=== PATIENT | female | born 1945 | race Caucasian/White ===

== ENCOUNTER → 2016-09-07 | Outpatient (CLI) | payer OTHER ==
[~2016-09-07] VITALS: Ht 157.5 cm; Wt 80.7 kg
[~2016-09-07] MED LIST: ALIGN4 MG PO; BUSPIRONE HCL15 MG PO; CARVEDILOL6.25 MG PO; HAIR, SKIN & N1 EAC2 PO; HYDROCHLOROTHIA25 M2 PO; IRON325 PO; KRILL OIL500 MG PO; SINGULAIR 10 MG10 M1 PO; VENTOLIN HFA 1818 GM INH; VITAMIN D-32000 UNIT PO; ZYRTEC10 M5 PO
--- NOTE | ~2016-09-07 | P ---
[facility] [place] [address] PROCEDURE REPORT Name: MAI KOO Room #: REG [facility].#: [id number] Admission: 09/07/16 Attend Phys: Conner Cespedes MD Discharge: Date of : 47 Report #: [id number] THIS REPORT FOR: //name// CC: Conner Gilbert MD OUTPATIENT UPPER ENDOSCOPY BRIEF HISTORY: The patient is a 71-year-old woman, known to me from previous evaluation with history of large hiatus hernia and Mohan ulcers with anemia in 2012. She reports that she has had similar symptoms with pain. She has also recently found to be anemic with hemoglobin in the 8 range and a month ago was started on iron replacement. She had been on Plavix and stopped that because of her symptoms. PREOPERATIVE DIAGNOSES: Anemia and epigastric pain and history of peptic ulcer disease. POSTOPERATIVE DIAGNOSES: 1. 1 cm moderately deep antral ulcer, posterior wall. 2. Large 6 to 8 cm sliding type hiatus hernia. 3. Esophagitis, grade C. 4. Diffuse gastritis with the antral erosions. 5. esophagus secondary to large hiatus hernia. MEDICATIONS: Deep sedation with propofol per anesthesia. SPECIMEN: 1. Small bowel biopsies to rule out celiac disease. 2. Biopsies of antral ulcer. 3. Biopsies of antral and body mucosa to evaluate for H. pylori in view of his history of H. pylori. ESTIMATED BLOOD LOSS: 3 mL. PROCEDURE: EGD with biopsy. FINDINGS: Prior to propofol sedation, procedure of upper endoscopy was discussed with the patient as well as potential risks and its complications. She indicates she understands and desires to proceed. DESCRIPTION OF PROCEDURE: With the patient in left lateral decubitus position, the [employer] video endoscope was inserted in the cervical esophagus under direct vision without difficulty. Examination of this organ to its entire length revealed normal esophageal mucosa down the squamocolumnar junction. She was noted have a tortuous distal esophagus secondary to her large hiatus hernia. In [facility] [address] [place] [address] PROCEDURE REPORT Name: MAI KOO Room #: REG [facility].#: [id number] Admission: 09/07/16 Attend Phys: Conner Cespedes MD Discharge: Date of : 47 Report #: [id number] the distal esophagus at the level of the gastroesophageal junction, there was at least one erosion extending about a third of the way around the esophageal lumen consistent with grade C erosive esophagitis. I did not see obvious Reddy mucosa. No strictures or masses were seen. The scope was advanced into a large hiatus hernia that measured somewhere between 6 and 8 cm. The mucosa and the hernia was intact. No ulcers or erosions were seen associated with the hiatus hernia. The scope was then advanced in the distal stomach. Examination of distal stomach revealed a moderate gastritis with a few erosive changes. Also, in the antrum of the stomach along the posterior wall, a 1 cm moderately deep benign appearing ulcer was seen and had white cleaned exudate in his base. Multiple biopsies were obtained, stigmata of bleeding was not identified. Upon retroflexion, a large hiatus hernia was seen. In the retroflexed position, I could see esophagitis somewhat better. No strictures or masses were seen. Pylorus was normal. Duodenal bulb was normal. Postbulbar sweep was normal. However, in view of her anemia and the fact that she had lymphocytosis on previous small bowel biopsies, small bowel biopsies were again obtained. At that point, the scope was slowly withdrawn and careful circumferential views confirmed the above findings. The patient tolerated the procedure well. CONDITION OF THE PATIENT UPON DISCHARGE: Following procedure, the patient drowsy and then prepared for colonoscopy. INSTRUCTIONS TO THE PATIENT AND FAMILY AT THE TIME OF DISCHARGE: She has a gastric ulcer, we will start her on omeprazole 40 mg daily. Also, follow up on biopsies and make further recommendation with regard to H. pylori status. We will proceed with colonoscopy at this time due to her history of polyps and also anemia. <ELECTRONICALLY SIGNED> By: Conner Cespedes MD 09/09/16 1228 [id number] [id number] Conner Cespedes MD /nt
--- NOTE | ~2016-09-07 | P ---
[facility] [place] [address] PROCEDURE REPORT Name: MAI KOO Room #: REG [facility].#: [id number] Admission: 09/07/16 Attend Phys: Conner Cespedes MD Discharge: Date of : 47 Report #: [id number] THIS REPORT FOR: //name// CC: Conner Gilbert MD BRIEF HISTORY: The patient is a 71-year-old woman who has a history of colon polyps. She was also recently found to be anemic. Please see upper endoscopy report as well. PREOPERATIVE DIAGNOSIS: History of colon polyps and anemia. POSTOPERATIVE DIAGNOSES: 1. Multiple colon polyps. 2. Escalera diverticulosis coli. MEDICATIONS: Deep sedation with propofol per anesthesia. SPECIMENS: 1. Diminutive cecal polyp. 2. Mid ascending colon polyp. 3. Polyp at 30 cm. ESTIMATED BLOOD LOSS: 3 mL. PROCEDURE: Colonoscopy to cecum and the terminal ileum with biopsy. FINDINGS: Prior to propofol sedation, procedure of colonoscopy discussed with the patient as well as potential risks and its complications. She indicates she understands and desires to proceed. DESCRIPTION OF PROCEDURE: With the patient in the left lateral decubitus position, digital examination was completed, which revealed no abnormalities. Subsequently, the [employer] video colonoscope was introduced into the rectum and advanced under direct vision to the cecum. Done with minimal difficulty. The cecum was identified by the ileocecal valve and the appendiceal orifice. I was able to visualize the distal segment of the terminal ileum, which was inspected and noted to be unremarkable. At that point, the scope was slowly withdrawn and careful circumferential views were obtained. As we withdrew the scope, a diminutive polyp was seen and removed by biopsy from the cecum. In the mid ascending colon, another diminutive polyp was seen and removed by biopsy. As we withdrew the scope, she was noted to have diverticular disease throughout the entire colon, consistent with escalera diverticulosis. The diverticular disease was greater on the left side than the right side. There was no endoscopic evidence of diverticulitis. As we further withdrew the scope, the mucosa remained intact and within normal limits until about 30 cm, at which point, another diminutive [facility] [address] [place] [address] PROCEDURE REPORT Name: MAI KOO Room #: REG [facility].#: [id number] Admission: 09/07/16 Attend Phys: Conner Cespedes MD Discharge: Date of : 47 Report #: [id number] polyp was seen and removed by biopsy. The scope was further withdrawn and no additional polyps were seen. Scope was withdrawn in the rectum. Upon retroflexion, no abnormalities were seen. Scope was withdrawn. The patient tolerated the procedure well. CONDITION OF THE PATIENT UPON DISCHARGE: Following the procedure, the patient drowsy, arousable and conversant and will be discharged home when fully ambulatory. INSTRUCTIONS TO THE PATIENT AND FAMILY AT THE TIME OF DISCHARGE: The patient was found to have 3 polyps. We will follow up on the path and make surveillance recommendations. In summary, if all 3 are adenomas, she should return in 3 years. If only 1-2 adenomas, then 5 years would be indicated. If none are adenomas, then 10 years would be indicated. She will return to care of Dr. Sudha Gilbert and return to see me as needed. In addition, as far as her recent findings of anemia, I do not see any bleeding lesions. Again, please see upper endoscopy report for those findings and particularly her gastric ulcer. Last colonoscopy was about 5 years ago. Withdrawal time from the cecum was 14 minutes. <ELECTRONICALLY SIGNED> By: Conner Cespedes MD 09/09/16 1228 0913 [id number] Conner Cespedes MD /nt
--- NOTE | ~2016-09-07 | S ---
[facility] [address] [place] [address] SURGICAL PATH RPT PROCEDURE Name: MAI KOO Room #: REG [facility]#: [id number] Admission: 09/07/16 Date of : 47 Discharge: Report #: [id number] Path Case #: [id number] PATHOLOGY REPORT DRAFT COLLECTION DATE: 09/07/2016 RECEIVED DATE: 09/08/2016 SPECIMEN(S) RECEIVED: A.Small bowel B.Gastric ulcer C.Antrum body D.Cecal polyp E.Mid ascending colon polyp F.Polyp 30 cm
== END | disposition home or self-care (01) ==
LOC: GI 07:07
DX: D12.0 Benign neoplasm of cecum (principal); D12.2 Benign neoplasm of ascending colon; D12.5 Benign neoplasm of sigmoid colon; K57.30 Diverticulosis of large intestine without perforation or abscess without bleeding; K21.9 Gastro-esophageal reflux disease without esophagitis; K25.9 Gastric ulcer, unspecified as acute or chronic, without hemorrhage or perforation; K20.8 Other esophagitis; K44.9 Diaphragmatic hernia without obstruction or gangrene; I10 Essential (primary) hypertension; J45.909 Unspecified asthma, uncomplicated; F41.9 Anxiety disorder, unspecified; F32.9 Major depressive disorder, single episode, unspecified; Z87.891 Personal history of nicotine dependence; Z86.010 Personal history of colon polyps; Z98.890 Other specified postprocedural states
CPT/HCPCS: 62110; 62900